=== PATIENT | male | born 1970 | race Caucasian/White ===

== ENCOUNTER 2019-12-01 17:32 | Emergency (ER) | payer MEDICAID ==
--- NOTE | 2019-12-01 22:41 | RAD ---
CHEST TWO VIEWS: 12/01/19 PA and lateral view show lungs that are hyperexpanded with flattening of the diaphragm. No lobar infi ltrate was present. No mass or fluid was seen. CT would be needed to detect a small pathology. The he art is normal in size. The bony structures showed no acute change. The trachea is midline. IMPRESSION: Significantly hyperexpanded lungs. Suspicion of COPD. POS: HOME
== END 2019-12-01 19:50 | disposition home or self-care (01) ==
LOC: BURERS 17:32
DX: B34.9 Viral infection, unspecified (principal)
CPT/HCPCS: 71046; 87804